=== PATIENT | female | born 1990 | race Caucasian/White ===

== ENCOUNTER 2017-08-20 16:12 | Emergency (ER) | payer OTHER ==
[~2017-08-20] VITALS: Ht 154.9 cm; Wt 68.0 kg
[~2017-08-20 16:12] MED LIST: BACTRIM DS TAB1 EACH PO; CLARITIN10 MG PO
[2017-08-20] MEDS ORDERED: CLEOCIN HCL300 MG PO (16:34)
[2017-08-20 16:43] VITALS: BP 130/90
== END 2017-08-20 16:44 | disposition home or self-care (01) ==
LOC: M.ERS 16:12
DX: L05.01 Pilonidal cyst with abscess (principal)

== ENCOUNTER 2017-08-25 16:53 | Emergency (ER) | payer OTHER ==
[~2017-08-25] VITALS: Ht 154.9 cm; Wt 68.0 kg
[~2017-08-25 16:53] MED LIST changes: +CLEOCIN HCL300 MG PO
[2017-08-25 17:41] LABS: URINE BILIRUBIN NEGATIVE (Negative); URINE BLOOD NEGATIVE (Negative); URINE CLARITY CLEAR; URINE COLOR YELLOW; URINE GLUCOSE-RANDOM NEGATIVE (Negative); URINE KETONES TRACE (Negative); URINE LEUKOCYTES-REFLEX NEGATIVE (Negative); URINE NITRITE-REFLEX NEGATIVE (Negative); URINE PROTEIN NEGATIVE (Negative); URINE SPECIFIC GRAVITY >= 1.030 (1.005-1.030); URINE UROBILINOGEN 0.2 E.U./dl (0.2-1.0)
[2017-08-25 18:02] VITALS: BP 136/86
== END 2017-08-25 18:03 | disposition home or self-care (01) ==
LOC: M.ERS 16:53
PROVIDERS: Physician Assistant
DX: L05.01 Pilonidal cyst with abscess (principal); F10.99 Alcohol use, unspecified with unspecified alcohol-induced disorder; Z86.14 Personal history of Methicillin resistant Staphylococcus aureus infection